=== PATIENT | male | born 1930 | race African-American/Black ===

== ENCOUNTER → 2017-03-23 | Day surgery (SDC) | payer MEDICARE ==
[2017-03-18 14:14] LABS: BASOPHILS % 0.5 % (0.0-1.0); EOSINOPHILS # (AUTO) 0.1 (0.0-0.4); EOSINOPHILS % 1.7 % (0.0-6.0); HEMATOCRIT 39.1 % (38.2-49.6); HEMOGLOBIN 12.4 g/dL (14.0-18.0); LYMPHOCYTES # (AUTO) 2.1 (1.0-3.2); LYMPHOCYTES % 35.2 % (18.0-39.1); MEAN CORPUSCULAR HEMOGLOBIN 29.4 pg (28-32); MEAN CORPUSCULAR HGB CONC 31.7 g/dL (31-35); MEAN CORPUSCULAR VOLUME 92.7 fL (81-99); MONOCYTES # (AUTO) 0.6 (0.2-0.8); MONOCYTES % 9.5 % (4.4-11.3); NEUTROPHILS # (AUTO) 3.2 (2.1-6.9); NEUTROPHILS % 52.8 % (38.7-80.0); PLATELET COUNT 193 x10e3/uL (140-360); RED BLOOD COUNT 4.22 x10e6/uL (4.3-5.7); RED CELL DISTRIBUTION WIDTH 14.5 % (11.7-14.4)
[2017-03-18 14:45] LABS: ANION GAP 13.8 mmol/L (8-16); CALCIUM 8.8 mg/dL (8.4-10.2); CREATININE, SERUM 1.54 mg/dL (0.72-1.25); POTASSIUM 3.8 mmol/L (3.5-5.1)
[~2017-03-23] MED LIST: ALLOPURINOL300 MG PO; ASPIR-LOW81 MG PO; BACITRACIN 50,000 UNIT VIAL ONE; BUPIVACAINE 0.25%/EPI 30ML SDV INJ ONE; CARVEDILOL PO; CARVEDILOL3.125 MG PO; CEFAZOLIN SOD 1 GM/NS 50ML 50 ML IV ONE; COLCHICINE PO; DEXAMETHASONE SOD PHOS INJ 4 MG/ML VIAL ONE; DOCUSATE SODIU100 MG PO; FENTANYL CITRATE/PF 100MCG/2 ML INJ ONE; FUROSEMIDE40 MG PO; GABAPENTIN300 MG PO; GLIPIZIDE5 MG PO; LACTULOSE20 GM/30 M PO; LIDOCAINE HCL 2% LOCAL INJ 5 ML SDV VIAL INJ ONE; LISINOPRIL10 MG PO; MUPIROCIN 2% OINT 22 GM TUBE ONE; OMEPRAZOLE20 M1 PO; ONDANSETRON HCL INJ 2 MG/ML VIAL ONE; PHENYLEPHRINE HCL 1% 10 MG/ML VIAL ONE; POLYETHYLENE GL17 GM PO; POTASSIUM CHLO10 ME1 PO; PROPOFOL IV EMULSION 10 MG/ML 20 ML VIAL ONE; SEVOFLURANE INHAL SOLN 250 ML PEN BTL ONE; SIMVASTATIN20 MG PO; ULTRAM 50MG50 MG PO
--- NOTE | 2017-03-24 11:10 | Operative Report ---
DATE OF PROCEDURE: March 23, 2017 PREOPERATIVE DIAGNOSIS: Painful hardware, left knee. POSTOPERATIVE DIAGNOSIS: Painful hardware, left knee. PROCEDURE: Hardware removal, left knee. INTERIOR [employer]SEMBLIES DEVELOPER PROVER: Sean Smiley PA-C The patient was brought to the operating room for induction of anesthesia. Throughout this case, my PA's assistance was necessary for retraction of soft tissue and positioning of the extremity. This allows for efficient and technically successful execution of the operation and is considered medically necessary. INDICATIONS: The patient is an 86-year-old gentleman who is approaching 9 months status post an ORIF of his patella. He feels the knee is particularly painful with any direct pressure over the anterior aspect such as with kneeling. He presented to the clinic, motivated to schedule a hardware removal. The risks and benefits have been explained. Some persistent pain due to the comminution and articular irregularity of the patella have been repeatedly stressed. He states he understands and wishes to proceed. His daughter was present for all of these conversations. DESCRIPTION OF PROCEDURE: The patient was brought to the operating room and placed under general anesthetic. He received prophylactic antibiotics in the holding area. His left lower extremity was prepped and draped in a sterile manner. A preoperative time-out was performed. The extremity was exsanguinated and a proximal tourniquet was inflated to 300 mmHg. The previous incision was utilized. Careful dissection was used to expose the tension band wires. These were carefully removed. The vertical pins were also carefully exposed. These seemed to be quite buried. The distal portion of the pins were straightened out so that they could be retrieved from the vertical portion. The wound was then irrigated. An intraoperative x-ray showed complete hardware removal. As noted before, there was a significant articular irregularity of the patella. The knee was put through range of motion and there was no evidence of any displacement or recurrent fracture of the patella. The wound was injected with 10 mL of 0.25% Marcaine with epinephrine. The skin and soft tissue were closed with buried 2-0 Vicryl stitches. The skin was closed with wing. A sterile bandage was applied. He was extubated and transported to the recovery room in stable condition. Job#: [id number] SAK
== END | disposition home or self-care (01) ==
LOC: OR 05:09
PROVIDERS: ATTEND Specialist
DX: T84.84XA Pain due to internal orthopedic prosthetic devices, implants and grafts, initial encounter (principal); S82.032A Displaced transverse fracture of left patella, initial encounter for closed fracture; E11.9 Type 2 diabetes mellitus without complications; I25.2 Old myocardial infarction; I10 Essential (primary) hypertension; K21.9 Gastro-esophageal reflux disease without esophagitis; Y83.8 Other surgical procedures as the cause of abnormal reaction of the patient, or of later complication, without mention of misadventure at the time of the procedure; X58.XXXA Exposure to other specified factors, initial encounter; Z01.810 Encounter for preprocedural cardiovascular examination; Z01.812 Encounter for preprocedural laboratory examination; Z79.82 Long term (current) use of aspirin; Z85.51 Personal history of malignant neoplasm of bladder
CPT/HCPCS: 20680; 36415; 76000; 80048; 85025; 93005; J1100; J2001; J2370; J2405